=== PATIENT | male | born 1945 | race Caucasian/White ===

== ENCOUNTER 2020-07-27 16:16 | Emergency (ER) | payer OTHER ==
[~2020-07-27] VITALS: Ht 165.1 cm; Wt 77.1 kg
[2020-07-27] MEDS ORDERED: SIMVASTATIN5 MG (16:48)
[2020-07-27] MEDS ORDERED: ZOCOR20 MG (16:48)
== END 2020-07-27 19:53 | disposition home or self-care (01) ==
LOC: ER 16:16
DX: S01.322A Laceration with foreign body of left ear, initial encounter (principal); W22.8XXA Striking against or struck by other objects, initial encounter; Y93.89 Activity, other specified; Y92.013 Bedroom of single-family (private) house as the place of occurrence of the external cause; Y99.8 Other external cause status

== ENCOUNTER 2020-08-03 10:20 | Emergency (ER) | payer OTHER ==
[~2020-08-03] VITALS: Ht 165.1 cm; Wt 76.2 kg
[~2020-08-03 10:20] MED LIST: SIMVASTATIN5 MG; ZOCOR20 MG
== END 2020-08-03 11:59 | disposition home or self-care (01) ==
LOC: ER 10:20
DX: T81.89XA Other complications of procedures, not elsewhere classified, initial encounter (principal)

== ENCOUNTER → 2020-08-06 | Emergency (ER) | payer OTHER | END | disposition left against medical advice (07) | LOC: ER | DX: Z53.20 Procedure and treatment not carried out because of patient's decision for unspecified reasons (principal) ==

== ENCOUNTER 2020-08-13 09:39 | Emergency (ER) | payer OTHER ==
[~2020-08-13] VITALS: Ht 162.6 cm; Wt 76.2 kg
== END 2020-08-13 11:27 | disposition home or self-care (01) ==
LOC: ER 09:39
DX: Z48.02 Encounter for removal of sutures (principal)